=== PATIENT | female | born 1960 | race Caucasian/White ===

== ENCOUNTER 2020-12-18 23:32 | Inpatient (IN) | payer SELFPAY ==
[~2020-12-18] VITALS: Ht 152.4 cm; Wt 32.2 kg
[2020-12-19] VITALS (14 sets, daily range): BP systolic 76–125; BP diastolic 40–76
[2020-12-19] MEDS ORDERED: SODIUM CHLORIDE 0.9% 1000ML BAG (SEPSIS BOLUS) IV ONE
[2020-12-19] MEDS ORDERED: VANCOMYCIN 1 G PREMIX 200 ML IV ONE
[2020-12-19] MEDS ORDERED: PIPERACILLIN/TAZ 3.375G PREMIX 50 ML IV ONE
[2020-12-19 00:08] LABS: BG BASE EXCESS -0.9 mmol/L (-2.0-2.0); BG CARBOXYHEMOGLOBIN 3.6 % (0.5-1.5); BG DEOXYHEMOGLOBIN 26.8 % (0.0-5.0); BG FRACTION INSPIRED OXYGEN 21; BG HCO3 ACT 29.5 mmol/L (22.0-26.0); BG METHEMOGLOBIN 0.3 % (0.0-1.5); BG OXYGEN SATURATION 72.1 % (92.0-98.5); BG OXYHEMOGLOBIN 69.3 % (94.0-97.0); BG PCO2 86.4 mmHg (35.0-45.0); BG PH 7.151 (7.350-7.450); BG TOTAL HEMOGLOBIN 10.7 g/dL (12.0-18.0); BG VENT MODE ROOM AIR
[2020-12-19 00:14] LABS: CHLORIDE 104 mEq/L (98-107)
[2020-12-19 00:16] LABS: INR 1.3
[2020-12-19] MEDS ORDERED: EPINEPHRINE 5 MG in SODIUM CHLORIDE 0.9% 245 ML IV STA (00:19)
[2020-12-19 00:22] LABS: CREATINE KINASE 499 IU/L (26-192)
[2020-12-19 00:23] LABS: T4 FREE 1.08 ng/dL (0.76-1.46)
[2020-12-19 00:39] LABS: HEMATOCRIT. 32.4 % (36.0-48.0); HEMOGLOBIN. 11.1 g/dL (12.0-16.0); MEAN CORPUSCULAR HEMOGLOBIN 34.2 pg (28.0-32.0); MEAN CORPUSCULAR VOLUME 100.2 fL (81.0-99.0); MEAN PLATELET VOLUME 8.5 fl (7.4-10.4); RED BLOOD CELL COUNT 3.23 mill/uL (4.2-5.4); RED CELL DISTRIBUTION WIDTH 16.4 % (11.6-14.6)
[2020-12-19 00:52] LABS: PLATELET 55 x1000/uL (130-400)
[2020-12-19] MEDS ORDERED: EPINEPHRINE 5 MG in SODIUM CHLORIDE 0.9% 245 ML IV SCH (01:00)
[2020-12-19] MEDS ORDERED: NOREPINEPHRINE 8MG/250ML PMX 250 ML IV STA (01:59)
[2020-12-19] MEDS ORDERED: ACETAMINOPHEN 650MG SUPP PR PRN (02:00)
[2020-12-19] MEDS ORDERED: HYDROCORTISONE SOD SUCCINATE 100 MG/2 ML VIAL IV ONE (02:00)
[2020-12-19] MEDS ORDERED: MIDAZOLAM HCL 100 MG in DEXT 5% WATER 80 ML IV ONE (02:00)
[2020-12-19] MEDS ORDERED: MIDAZOLAM 100MG/100ML PREMIX IV PRN (02:15)
[2020-12-19 02:28] LABS: CLARITY URINE CLOUDY (CLEAR); COLOR URINE YELLOW (YELLOW); KETONES URINE NEGATIVE (NEGATIVE); LEUKOCYTE ESTERASE URINE 1+ (NEGATIVE); NITRITE URINE NEGATIVE (NEGATIVE); OCCULT BLOOD URINE TRACE (NEGATIVE); PROTEIN URINE 1+ (NEGATIVE); SPECIFIC GRAVITY URINE 1.016 (1.005-1.030)
[2020-12-19] MEDS ORDERED: MIDAZOLAM HCL 100 MG in SODIUM CHLORIDE 0.9% 100 ML IV PRN (02:30)
[2020-12-19 02:47] LABS: *BARBITURATES SCREEN URINE NEGATIVE (NEGATIVE); *BENZODIAZEPINES SCREEN URINE NEGATIVE (NEGATIVE); *COCAINE SCREEN URINE PRESUMTIVE POSITIVE (NEGATIVE); METHADONE URINE SCREEN NEGATIVE (NEGATIVE); OPIATES URINE SCREEN NEGATIVE (NEGATIVE)
[2020-12-19 02:48] LABS: *AMPHETAMINES SCREEN URINE NEGATIVE (NEGATIVE); CANNABINOID URINE SCREEN NEGATIVE (NEGATIVE); PHENCYCLIDINE URINE SCREEN NEGATIVE (NEGATIVE)
[2020-12-19] MEDS ORDERED: POTASSIUM CHLORIDE INJ 40 MEQ in DEXT 5% WATER 500 ML IV SCH (03:00)
[2020-12-19 03:08] LABS: PLATELET ESTIMATE DECREASED
[2020-12-19] MEDS ORDERED: HYDROCORTISONE SOD SUCCINATE 100 MG/2 ML VIAL IV SCH ×2 (04:00→22:00)
[2020-12-19] MEDS: CEFEPIME 1,000 MG in DEXTROSE 5% WATER 50 ML IV SCH (04:07)
[2020-12-19] MEDS: DEXT 5%/0.45% NACL 1000ML 1,000 ML IV SCH ×2 (04:08→19:45)
[2020-12-19] MEDS: PHENYLEPHRINE 50 MG in DEXTROSE 5% WATER 250 ML IV PRN ×2 (05:25→14:07)
[2020-12-19] MEDS ORDERED: NOREPINEPHRINE 8 MG in DEXT 5% WATER 242 ML IV PRN (07:45)
[2020-12-19] MEDS ORDERED: EPINEPHRINE 0.1MG/ML (1:10,000) 10ML SYR ONE (08:15)
[2020-12-19] MEDS ORDERED: DEXTROSE 50% WATER 50ML SYRINGE IV ONE (08:15)
[2020-12-19] MEDS ORDERED: SODIUM BICARBONATE 8.4% 1 MEQ/ML 50ML SYR IV ONE (08:15)
[2020-12-19] MEDS ORDERED: CALCIUM CHLORIDE 1GM/10ML SYR IV ONE (08:15)
[2020-12-19] MEDS: EPINEPHRINE 5 MG in SODIUM CHLORIDE 0.9% 245 ML IV PRN ×2 (08:48→11:32)
[2020-12-19 09:17] LABS: HEMATOCRIT. 31.7 % (36.0-48.0); HEMOGLOBIN. 10.7 g/dL (12.0-16.0); RED BLOOD CELL COUNT 3.14 mill/uL (4.2-5.4); RED CELL DISTRIBUTION WIDTH 16.6 % (11.6-14.6)
[2020-12-19 09:44] LABS: NUCLEATED RED BLOOD CELLS 2 /100 WBC
[2020-12-19 09:47] LABS: MEAN PLATELET VOLUME 9.4 fl (7.4-10.4); PLATELET 72 x1000/uL (130-400); PLATELET ESTIMATE DECREASED
[2020-12-19] MEDS ORDERED: IPRATROPIUM/ALBUTEROL 0.5-3(2.5)MG/3ML NEB HHN PRN (10:30)
[2020-12-19 10:50] LABS: BG BASE EXCESS -4.2 mmol/L (-2.0-2.0); BG CARBOXYHEMOGLOBIN 0.3 % (0.5-1.5); BG DEOXYHEMOGLOBIN 2.8 % (0.0-5.0); BG FRACTION INSPIRED OXYGEN 100; BG HCO3 ACT 22.1 mmol/L (22.0-26.0); BG METHEMOGLOBIN 0.3 % (0.0-1.5); BG OXYGEN SATURATION 97.2 % (92.0-98.5); BG OXYHEMOGLOBIN 96.6 % (94.0-97.0); BG PCO2 45.6 mmHg (35.0-45.0); BG PH 7.304 (7.350-7.450); BG PO2 151.5 mmHg (75.0-100.0); BG SAMPLE SITE RIGHT RADIAL; BG TOTAL HEMOGLOBIN 11.5 g/dL (12.0-18.0); BG VENT MODE VENT - AC
[2020-12-19] MEDS ORDERED: METRONIDAZOLE 500 MG PREMIX 100 ML IV SCH ×2 (11:00→22:00)
[2020-12-19] MEDS ORDERED: CALCIUM GLUCONATE 1GM PREMIX 50 ML IV NR (11:30)
[2020-12-19] MEDS ORDERED: VANCOMYCIN 500 MG PREMIX 100 ML IV SCH ×2 (12:00→18:00)
[2020-12-19] MEDS ORDERED: EPINEPHRINE 10 MG in SODIUM CHLORIDE 0.9% 250 ML IV PRN (14:00)
[2020-12-19] MEDS: HYDROCORTISONE SOD SUCCINATE 100 MG/2 ML VIAL IV SCH ×2 (14:22→22:37)
[2020-12-19] MEDS: IPRATROPIUM/ALBUTEROL 0.5-3(2.5)MG/3ML NEB HHN SCH ×2 (15:20→20:12)
[2020-12-19] MEDS ORDERED: PHENYLEPHRINE 100 MG in DEXT 5% WATER 250 ML IV PRN (15:30)
[2020-12-19] MEDS ORDERED: NOREPINEPHRINE 32 MG in DEXTROSE 5% WATER 250 ML IV PRN (15:30)
[2020-12-19] MEDS ORDERED: MAGNESIUM 2 G PREMIX 50 ML IV NR (18:00)
[2020-12-19] MEDS: CALCIUM GLUCONATE 1GM PREMIX 50 ML IV NR ×2 (18:20→22:37)
[2020-12-19] MEDS ORDERED: FENTANYL CITRATE/PF 2,500 MCG in SODIUM CHLORIDE 0.9% 200 ML IV PRN (22:15)
[2020-12-19] MEDS ORDERED: ACETAMINOPHEN 650MG/20.3ML UDC PO PRN (22:30)
[2020-12-19] MEDS ORDERED: DEXTROSE 50% WATER 50ML SYRINGE IV PRN (22:30)
[2020-12-19] MEDS: VASOPRESSIN 20 UNITS in SODIUM CHLORIDE 0.9% 100 ML IV PRN (22:36)
[2020-12-19] MEDS ORDERED: BLOOD SUGAR DIAGNOSTIC STRIP TEST SCH (23:00)
[2020-12-19] MEDS ORDERED: INSULIN LISPRO 100 UNITS/ML SUBCUT SCH (23:00)
[2020-12-19 23:15] LABS: BG BASE EXCESS -11.3 mmol/L (-2.0-2.0); BG CARBOXYHEMOGLOBIN 0.7 % (0.5-1.5); BG FRACTION INSPIRED OXYGEN 100; BG HCO3 ACT 17.1 mmol/L (22.0-26.0); BG METHEMOGLOBIN 0.3 % (0.0-1.5); BG OXYGEN SATURATION 76.8 % (92.0-98.5); BG PCO2 49.2 mmHg (35.0-45.0); BG PO2 46.6 mmHg (75.0-100.0); BG SAMPLE SITE RIGHT FEMORAL; BG TOTAL HEMOGLOBIN 11.8 g/dL (12.0-18.0); BG VENT MODE VENT - AC
[2020-12-19] MEDS ORDERED: SODIUM BICARBONATE 8.4% 1 MEQ/ML 50ML SYR IV NR (23:24)
[2020-12-20] VITALS (25 sets, daily range): BP systolic 69–120; BP diastolic 31–74
[2020-12-20] MEDS: IPRATROPIUM/ALBUTEROL 0.5-3(2.5)MG/3ML NEB HHN SCH ×2 (01:35→05:25)
[2020-12-20 03:31] LABS: BG BASE EXCESS -7.3 mmol/L (-2.0-2.0); BG CARBOXYHEMOGLOBIN 0.9 % (0.5-1.5); BG DEOXYHEMOGLOBIN 26.4 % (0.0-5.0); BG FRACTION INSPIRED OXYGEN 100; BG HCO3 ACT 19.8 mmol/L (22.0-26.0); BG METHEMOGLOBIN 0.3 % (0.0-1.5); BG OXYGEN SATURATION 73.3 % (92.0-98.5); BG OXYHEMOGLOBIN 72.4 % (94.0-97.0); BG PCO2 46.8 mmHg (35.0-45.0); BG PH 7.245 (7.350-7.450); BG PO2 40.6 mmHg (75.0-100.0); BG SAMPLE SITE LEFT FEMORAL; BG TOTAL HEMOGLOBIN 11.9 g/dL (12.0-18.0); BG VENT MODE VENT - AC
[2020-12-20] MEDS: CEFEPIME 1,000 MG in DEXTROSE 5% WATER 50 ML IV SCH (03:36)
[2020-12-20] MEDS ORDERED: DOPAMINE 800MG/500ML PREMIX 500 ML IV SCH (05:00)
[2020-12-20] MEDS: VASOPRESSIN 20 UNITS in SODIUM CHLORIDE 0.9% 100 ML IV PRN (05:14)
[2020-12-20 05:54] LABS: HEMATOCRIT. 35.4 % (36.0-48.0); HEMOGLOBIN. 11.3 g/dL (12.0-16.0); MEAN CORPUSCULAR HEMOGLOBIN 33.9 pg (28.0-32.0); MEAN CORPUSCULAR VOLUME 106.4 fL (81.0-99.0); RED BLOOD CELL COUNT 3.33 mill/uL (4.2-5.4); RED CELL DISTRIBUTION WIDTH 17.9 % (11.6-14.6)
[2020-12-20] MEDS ORDERED: BLOOD SUGAR DIAGNOSTIC STRIP TEST SCH (06:00)
[2020-12-20] MEDS ORDERED: INSULIN LISPRO 100 UNITS/ML SUBCUT SCH (06:00)
[2020-12-20] MEDS ORDERED: DEXTROSE 50% WATER 50ML SYRINGE IV ONE (06:02)
[2020-12-20 06:44] LABS: CHLORIDE 104 mEq/L (98-107)
[2020-12-20 06:55] LABS: CREATINE KINASE 521 IU/L (26-192)
[2020-12-20 06:57] LABS: CREATINE KINASE MB FRACTION 31.7 ng/mL (0.5-3.6)
[2020-12-20 07:55] LABS: NUCLEATED RED BLOOD CELLS 1 /100 WBC; PLATELET ESTIMATE MARKEDLY DECREASED
[2020-12-20 08:30] LABS: PLATELET 27 x1000/uL (130-400)
== END 2020-12-20 09:59 | DRG 720 ==
LOC: ER 23:32 → MICUSO 12-19 01:44 → EDBEDREQTM 12-19 01:54 → EDBEDREQ 12-19 01:54 → EDBEDREQSVC 12-19 01:54 → EDBEDREQDT 12-19 01:54 → CVICU 12-19 20:06
PROVIDERS: ADMIT Family Medicine Adult Medicine; ATTEND Family Medicine Adult Medicine
PROC: 0BH17EZ Insertion of Endotracheal Airway into Trachea, Via Natural or Artificial Opening (ICD-10-PCS; principal; 2020-12-19)
PROC: 5A1945Z Respiratory Ventilation, 24-96 Consecutive Hours (ICD-10-PCS; 2020-12-19)
PROC: 06HY33Z Insertion of Infusion Device into Lower Vein, Percutaneous Approach (ICD-10-PCS; 2020-12-19)
PROC: 5A12012 Performance of Cardiac Output, Single, Manual (ICD-10-PCS; 2020-12-20)
DX: A41.59 Other Gram-negative sepsis (principal); I46.9 Cardiac arrest, cause unspecified; J69.0 Pneumonitis due to inhalation of food and vomit; R65.21 Severe sepsis with septic shock; J96.01 Acute respiratory failure with hypoxia; J96.02 Acute respiratory failure with hypercapnia; G93.40 Encephalopathy, unspecified; E87.2 Acidosis; D61.818 Other pancytopenia; J15.6 Pneumonia due to other Gram-negative bacteria; F14.10 Cocaine abuse, uncomplicated; E87.6 Hypokalemia; Z20.822 Contact with and (suspected) exposure to COVID-19; E43 Unspecified severe protein-calorie malnutrition; R74.01 Elevation of levels of liver transaminase levels; E83.51 Hypocalcemia; Z79.899 Other long term (current) drug therapy; Z68.1 Body mass index [BMI] 19.9 or less, adult
CPT/HCPCS: 31500; 36415; 36600; 71045; 78580; 80048; 80053; 80076; 80162; 80305; 81003; 82140; 82375; 82550; 82553; 82805; 82962; 83036; 83605; 83735; 83880; 84145; 84439; 84443; 84484; 85025; 85379; 86703; 87077; 87186; 87426; 93005; 93970; 94002; 94640; 99291; A6261; J0610; J0692; J1265; J1720; J1815; J2250; J2370; J2543; J3370; J3475; J3480; J3490; J7030; J7050; J7060